=== PATIENT | male | born 1950 | race Two or more races ===

== ENCOUNTER 2017-02-26 10:45 | Day surgery (SDC) | payer MEDICARE ==
[2017-02-21 13:12] VITALS: BMI 25.7
[~2017-02-26 10:45] MED LIST: LACTATED RINGERS 1,000 ML IV SCH
[2017-02-26 11:19] VITALS: RESP 16; TEMP 98.8
[2017-02-26] MEDS ORDERED: LIDOCAINE 1% 20 ML VIAL (10MG/ML) FOR IV START INTRADERMA ONE (11:27)
[2017-02-26] MEDS ORDERED: PROPOFOL 10 MG/ML 20 ML VIAL IV ONE (11:51)
--- NOTE | 2017-02-26 11:56 | P.GSHP ---
History of Present Illness H&P Date: 02/26/17 Chief Complaint: Screening Patient here today for screening colonoscopy. Last colonoscopy 12 years ago. No bowel related complaints. No family history of colon cancer. Past Medical History Past Medical History: GERD/Reflux, Thyroid Disorder History of Any Multi-Drug Resistant Organisms: None Reported Past Surgical History: Orthopedic Surgery Additional Past Surgical History / Comment(s): RT EYE SX. COLONOSCOPY. LT KNEE SX Past Anesthesia/Blood Transfusion Reactions: Previous Problems w/ Anesthesia Additional Past Anesthesia/Blood Transfusion Reaction / Comment(s): SENSITIVE TO ANESTHESIA-HARD TO WAKE UP Smoking Status: Former smoker - Past Family History Father Family Medical History: Deep Vein Thrombosis (DVT) Brother(s) Family Medical History: Cancer Sister(s) Family Medical History: Cancer Medications and Allergies Home Medications Medication Instructions Recorded Confirmed Type Levothyroxine Sodium [Synthroid] 50 mcg PO SUTUWETHSA 02/21/17 02/26/17 History Omeprazole 20 mg PO Q2D 02/21/17 02/26/17 History Allergies Allergy/AdvReac Type Severity Reaction Status Date / Time No Known Allergies Allergy Verified 02/21/17 13:05 Surgical - Exam Vital Signs Temp Pulse Resp BP Pulse Ox 98.8 F 62 16 143/86 98 02/26/17 11:17 02/26/17 11:17 02/26/17 11:17 02/26/17 11:17 02/26/17 11:17 Physical exam: General: Well-developed, well-nourished HEENT: Normocephalic, sclerae nonicteric Abdomen: Nontender, nondistended Extremities: No edema Neuro: Alert and oriented Assessment and Plan (1) Colon cancer screening Narrative/Plan: Will proceed with colonoscopy. Status: Acute
--- NOTE | 2017-02-26 12:05 | P.PCN ---
Date of Procedure: 02/26/17 Procedure(s) Performed: PREOPERATIVE DIAGNOSIS: Screening POSTOPERATIVE DIAGNOSIS: Normal exam PROCEDURE: Colonoscopy ANESTHESIA: MAC SURGEON: Juan Manuel Delgado M.D. SPECIMENS: None ENDOSCOPIC PROCEDURE: The patient was placed on the endoscopy table in the left decubitus position. The Olympus colonoscope was inserted into the anus and passed under direct visualization to the base of the cecum. The appendiceal orifice was visualized. From that point the scope was slowly withdrawn inspecting all surfaces carefully. There were no neoplastic inflammatory or polypoid lesions throughout the cecum, ascending, transverse, descending, sigmoid and rectum. There was no diverticulosis noted. Digital rectal examination was normal. The patient was taken to the recovery room in stable condition per anesthesia guidelines. RECOMMENDATIONS: Increase fiber. Follow-up colonoscopy 10 years
[2017-02-26 12:30] VITALS: BP 131/89; PULSE 60
== END 2017-02-26 13:00 | disposition home or self-care (01) ==
LOC: ORWHC2ENDO 10:45
PROVIDERS: ATTEND Surgery
DX: Z12.11 Encounter for screening for malignant neoplasm of colon (principal); K21.9 Gastro-esophageal reflux disease without esophagitis; E07.9 Disorder of thyroid, unspecified; Z87.891 Personal history of nicotine dependence; Z79.899 Other long term (current) drug therapy
CPT/HCPCS: J2704; G0121; 45378

== ENCOUNTER 2018-10-24 12:20 | Inpatient (IN) | payer MEDICARE ==
[2018-10-24] MEDS ORDERED: NITROGLYCERIN OINT 1 INCH/GM PACKET TOPICAL STA (12:37)
[2018-10-24] MEDS ORDERED: SODIUM CHLORIDE 0.9% 500 ML 500 ML IV STA (12:37)
[2018-10-24] MEDS ORDERED: ASPIRIN 81 MG PO STA (12:37)
--- NOTE | 2018-10-24 12:47 | ED ---
General Adult HPI - General Chief complaint: Chest Pain Stated complaint: chest pain Time Seen by Provider: 10/24/18 12:25 Source: patient, RN notes reviewed - History of Present Illness Initial comments: This is a 68-year-old male who presents emergency Department complaining of feeling very weak fatigued short of breath and having some chest discomfort since yesterday. Patient states is definitely worse with exertion. Patient states there is no radiation of the pain. Patient states when he rests it seems to resolve the symptoms. Patient denied any diaphoretic episodes. Patient denied any nausea. Patient states she was lightheaded when it occurred. Patient states happened intermittently since yesterday. Patient states he did have some palpitations at one point but they seem to have resolved. Patient denies any leg swelling or calf tenderness. Patient denies abdominal pain. Patient states lying here he feels much better and currently does not feel any palpitations. - Related Data Home Medications Medication Instructions Recorded Confirmed Levothyroxine Sodium [Synthroid] 50 mcg PO MOTUWETHFR 02/21/17 10/24/18 Omeprazole 20 mg PO Q48H 02/21/17 10/24/18 Allergies Allergy/AdvReac Type Severity Reaction Status Date / Time No Known Allergies Allergy Verified 10/24/18 13:15 Review of Systems ROS Statement: Those systems with pertinent positive or pertinent negative responses have been documented in the HPI. ROS Other: All systems not noted in ROS Statement are negative. Past Medical History Past Medical History: GERD/Reflux, Thyroid Disorder History of Any Multi-Drug Resistant Organisms: None Reported Past Surgical History: Orthopedic Surgery Additional Past Surgical History / Comment(s): RT EYE SX. COLONOSCOPY. LT KNEE SX Past Anesthesia/Blood Transfusion Reactions: Previous Problems w/ Anesthesia Additional Past Anesthesia/Blood Transfusion Reaction / Comment(s): SENSITIVE TO ANESTHESIA-HARD TO WAKE UP Past Psychological History: No Psychological Hx Reported Smoking Status: Former smoker Past Alcohol Use History: Occasional Past Drug Use History: None Reported - Past Family History Father Family Medical History: Deep Vein Thrombosis (DVT) Brother(s) Family Medical History: Cancer Sister(s) Family Medical History: Cancer General Exam - General Exam Comments Initial Comments: GENERAL: Patient is well-developed and well-nourished. Patient is nontoxic and well-h ydrated and is in mild distress. ENT: Neck is soft and supple. No significant lymphadenopathy is noted. Oropharynx is clear. Moist mucous membranes. Neck has full range of motion without eliciting any pain. EYES: The sclera were anicteric and conjunctiva were pink and moist. Extraocular move ments were intact and pupils were equal round and reactive to light. Eyelids were unremarkable. PULMONARY: Unlabored respirations. Good breath sounds bilaterally. No audible rales rhonchi or wheezing was noted. CARDIOVASCULAR: There is a regular rate and rhythm without any murmurs gallops or rubs. ABDOMEN: Soft and nontender with normal bowel sounds. No palpable organomegaly was noted. There is no palpable pulsatile mass. SKIN: Skin is clear with no lesions or rashes and otherwise unremarkable. NEUROLOGIC: Patient is alert and oriented x3. Cranial nerves II through XII are grossly i ntact. Motor and sensory are also intact. Normal speech, volume and content. Symmetrical smile. MUSCULOSKELETAL: Normal extremities with adequate strength and full range of motion. LYMPHATICS: No significant lymphadenopathy is noted PSYCHIATRIC: Normal psychiatric evaluation. Course Vital Signs 10/24/18 10/24/18 12:23 13:15 Temperature 98.2 F Pulse Rate 60 56 L Respiratory 18 16 Rate Blood Pressure 169/94 157/94 O2 Sat by Pulse 98 98 Oximetry Medical Decision Making - Medical Decision Making EKG shows a normal sinus rhythm at 61 bpm WA interval 262 QRS is 84 QT interval 406 QTC is 408 per patient's EKG shows no ST segment elevation or depression no T-wave abnormalities are noted. Patient's d-dimer is mildly elevated sided a CAT scan of the chest to rule out PE they CAT scan showed no PE. Patient's troponin was elevated 1.2 so started the patient on heparin. I consulted cardiology. I spoke with Dr. Gore he agreed to admit the patient admitted the patient wrote admitting orders I continued heparin and aspirin and Nitropaste on the floor. - Lab Data Result diagrams: 10/24/18 12:48 10/24/18 12:48 Lab Results 10/24/18 10/24/18 10/24/18 Range/Units 12:48 12:48 12:48 WBC 5.0 (3.8-10.6) k/uL RBC 5.72 (4.30-5.90) m/uL Hgb 16.9 (13.0-17.5) gm/dL Hct 51.3 (39.0-53.0) % MCV 89.7 (80.0-100.0) fL MCH 29.6 (25.0-35.0) pg MCHC 33.0 (31.0-37.0) g/dL RDW 13.0 (11.5-15.5) % Plt Count 169 (150-450) k/uL Neutrophils % 62 % Lymphocytes % 23 % Monocytes % 8 % Eosinophils % 4 % Basophils % 0 % Neutrophils # 3.1 (1.3-7.7) k/uL Lymphocytes # 1.2 (1.0-4.8) k/uL Monocytes # 0.4 (0-1.0) k/uL Eosinophils # 0.2 (0-0.7) k/uL Basophils # 0.0 (0-0.2) k/uL PT 9.9 (9.0-12.0) sec INR 0.9 (<1.2) APTT 23.2 (22.0-30.0) sec D-Dimer 0.65 H (<0.60) mg/L FEU Sodium 140 (137-145) mmol/L Potassium 4.3 (3.5-5.1) mmol/L Chloride 104 (98-107) mmol/L Carbon Dioxide 29 (22-30) mmol/L Anion Gap 7 mmol/L BUN 17 (9-20) mg/dL Creatinine 0.96 (0.66-1.25) mg/dL Est GFR (CKD-EPI)AfAm >90 (>60 ml/min/1.73 sqM) Est GFR (CKD-EPI)NonAf 80 (>60 ml/min/1.73 sqM) Glucose 70 L (74-99) mg/dL Calcium 9.7 (8.4-10.2) mg/dL Magnesium 2.1 (1.6-2.3) mg/dL Total Bilirubin 0.6 (0.2-1.3) mg/dL AST 35 (17-59) U/L ALT 34 (21-72) U/L Alkaline Phosphatase 53 (38-126) U/L Troponin I (0.000-0.034) ng/mL Total Protein 7.6 (6.3-8.2) g/dL Albumin 4.5 (3.5-5.0) g/dL 05/11/19 Range/Units 12:48 WBC (3.8-10.6) k/uL RBC (4.30-5.90) m/uL Hgb (13.0-17.5) gm/dL Hct (39.0-53.0) % MCV (80.0-100.0) fL MCH (25.0-35.0) pg MCHC (31.0-37.0) g/dL RDW (11.5-15.5) % Plt Count (150-450) k/uL Neutrophils % % Lymphocytes % % Monocytes % % Eosinophils % % Basophils % % Neutrophils # (1.3-7.7) k/uL Lymphocytes # (1.0-4.8) k/uL Monocytes # (0-1.0) k/uL Eosinophils # (0-0.7) k/uL Basophils # (0-0.2) k/uL PT (9.0-12.0) sec INR (<1.2) APTT (22.0-30.0) sec D-Dimer (<0.60) mg/L FEU Sodium (137-145) mmol/L Potassium (3.5-5.1) mmol/L Chloride (98-107) mmol/L Carbon Dioxide (22-30) mmol/L Anion Gap mmol/L BUN (9-20) mg/dL Creatinine (0.66-1.25) mg/dL Est GFR (CKD-EPI)AfAm (>60 ml/min/1.73 sqM) Est GFR (CKD-EPI)NonAf (>60 ml/min/1.73 sqM) Glucose (74-99) mg/dL Calcium (8.4-10.2) mg/dL Magnesium (1.6-2.3) mg/dL Total Bilirubin (0.2-1.3) mg/dL AST (17-59) U/L ALT (21-72) U/L Alkaline Phosphatase (38-126) U/L Troponin I 1.290 H* (0.000-0.034) ng/mL Total Protein (6.3-8.2) g/dL Albumin (3.5-5.0) g/dL Critical Care Time Critical Care Time: Yes Total Critical Care Time: 35 Disposition Clinical Impression: Non-STEMI (non-ST elevated myocardial infarction) Disposition: ADMITTED IP TO THIS HOSP Referrals: Adiel Day III, MD [Primary Care Provider] - 1-2 days Time of Disposition: 14:11
[2018-10-24 13:03] LABS: Basophils % (A) 0 %; Eosinophils # (A) 0.2 k/uL (0-0.7); Eosinophils % (A) 4 %; HCT 51.3 % (39.0-53.0); HGB 16.9 gm/dL (13.0-17.5); Lymphocytes # (A) 1.2 k/uL (1.0-4.8); Lymphocytes % (A) 23 %; MCH 29.6 pg (25.0-35.0); MCV 89.7 fL (80.0-100.0); Mean Platelet Volume 6.5; Monocytes # (A) 0.4 k/uL (0-1.0); Monocytes % (A) 8 %; Neutrophils # (A) 3.1 k/uL (1.3-7.7); Neutrophils % (A) 62 %; Platelet Count 169 k/uL (150-450); RBC 5.72 m/uL (4.30-5.90)
[2018-10-24 13:12] LABS: ALT 34 U/L (21-72); AST 35 U/L (17-59); Albumin 4.5 g/dL (3.5-5.0); Alkaline Phosphatase 53 U/L (38-126); Anion Gap 7 mmol/L; Blood Urea Nitrogen 17 mg/dL (9-20); Calcium 9.7 mg/dL (8.4-10.2); Carbon Dioxide 29 mmol/L (22-30); Chloride 104 mmol/L (98-107); Glucose 70 mg/dL (74-99); Magnesium 2.1 mg/dL (1.6-2.3); Potassium 4.3 mmol/L (3.5-5.1); Sodium 140 mmol/L (137-145); Total Bilirubin 0.6 mg/dL (0.2-1.3); Total Protein 7.6 g/dL (6.3-8.2)
--- NOTE | 2018-10-24 13:13 | XR ---
EXAMINATION TYPE: XR chest 2V DATE OF EXAM: 10/24/2018 HISTORY: Chest Pain. REFERENCE: NONE. FINDINGS: The lungs are clear. Pleural space are clear. Heart size is upper limits of normal. There i s mild unfolding of the thoracic aorta. IMPRESSION: NO ACUTE INTRATHORACIC ABNORMALITY.
[2018-10-24 13:16] LABS: INR 0.9 (<1.2); Partial Thromboplastin Time 23.2 sec (22.0-30.0); Prothrombin Time 9.9 sec (9.0-12.0)
[2018-10-24 13:19] LABS: D-Dimer 0.65 mg/L FEU (<0.60)
--- NOTE | 2018-10-24 14:03 | CT ---
EXAMINATION TYPE: CT chest angio for PE DATE OF EXAM: 10/24/2018 COMPARISON: None. HISTORY: SOB, Chest tightness CT DLP: 393.3 mGycm Automated exposure control for dose reduction was used. CONTRAST: CT Chest for pulmonary embolism performed with with IV Contrast, patient injected with 85 mL of Isovu e 370. FINDINGS: There is mild dependent atelectasis within the dependent portions of the lungs. Lungs are o therwise clear. There is no significant axillary, mediastinal or hilar adenopathy. There is no evidence of pulmonary embolus. The heart is mildly enlarged. There is dilatation of the root of the aorta which measures 3.8 cm. The proximal arch measures 3.1 cm. The distal arch measures 3.3 cm. At the level of the aortic hiatus, t he aorta measures 3 cm. There is mild hypertrophic spondylosis within the dorsal spine. Visualized portions of the upper abdomen are normal. IMPRESSION: 1. THIS EXAMINATION IS NEGATIVE FOR PULMONARY EMBOLUS. 2. CARDIOMEGALY. 3. THORACIC AORTIC ANEURYSM WITH MAXIMAL TRANSVERSE DIAMETER 3.8 CM. 4. DEGENERATIVE CHANGES WITHIN THE SPINE.
[2018-10-24] MEDS ORDERED: HEPARIN SODIUM,PORCINE 5,000 UNIT/ML 1 ML VIAL IV ONE (14:07)
[2018-10-24] MEDS ORDERED: NITROGLYCERIN SL TABS 0.4 MG TAB SUBLINGUAL PRN (14:11)
[2018-10-24] MEDS ORDERED: HEPARIN SOD,PORK IN 0.45% NACL 25,000 UNIT in 0.45% NACL 1 250ML.BAG IV SCH (14:15)
[2018-10-24] MEDS ORDERED: SODIUM CHLORIDE 0.9% 1,000 ML IV SCH (14:30)
--- NOTE | 2018-10-24 14:36 | P.CRDCN ---
History of Present Illness Consult date: 10/24/18 Chief complaint: Chest pain History of present illness: This is a pleasant 68-year-old gentleman with no significant past medical history of diabetes or hypertension or dyslipidemia nor history of smoking but history of coronary artery disease run in his family with his father presented to the emergency room complaining of chest discomfort. He was in his usual state of health until yesterday when he was doing some work at his backyard and started experiencing discomfort in the mid of the chest, as a pressure on the chest, with some radiation to his neck as well as to his left arm. No associated symptoms of sweating, shortness of breath, or syncope. No nausea no vomiting. The discomfort lasted until he finished work then after he finished work the discomfort resolved completely. The EKG showed sinus rhythm without any ST or T-wave abnormalities concerning for ischemia. The troponin came in to be slightly elevated. For some reason, the patient independent a CTA of the chest which showed no evidence of PE. The rest of the blood work including CBC and BNP came in to be unremarkable. The patient currently is chest pain-free. He is not on any medications including aspirin, or heparin at this point. I am going to start the patient on aspirin, heparin IV, and start the patient on lisinopril as well as for blood pressure control. He does not need beta zainab in view of the sinus bradycardia already. Also will obtain echocardiogram was Doppler rate I did recommend proceeding with coronary angiogram and I am concerned about severe coronary artery disease. We'll continue following up with him. Past Medical History Past Medical History: GERD/Reflux, Thyroid Disorder History of Any Multi-Drug Resistant Organisms: None Reported Past Surgical History: Orthopedic Surgery Additional Past Surgical History / Comment(s): RT EYE SX. COLONOSCOPY. LT KNEE SX Past Anesthesia/Blood Transfusion Reactions: Previous Problems w/ Anesthesia Additional Past Anesthesia/Blood Transfusion Reaction / Comment(s): SENSITIVE TO ANESTHESIA-HARD TO WAKE UP Past Psychological History: No Psychological Hx Reported Smoking Status: Former smoker Past Alcohol Use History: Occasional Past Drug Use History: None Reported - Past Family History Father Family Medical History: Deep Vein Thrombosis (DVT) Brother(s) Family Medical History: Cancer Sister(s) Family Medical History: Cancer Medications and Allergies Home Medications Medication Instructions Recorded Confirmed Type Levothyroxine Sodium [Synthroid] 50 mcg PO MOTUWETHFR 02/21/17 10/24/18 History Omeprazole 20 mg PO Q48H 02/21/17 10/24/18 History Allergies Allergy/AdvReac Type Severity Reaction Status Date / Time No Known Allergies Allergy Verified 10/24/18 13:15 Physical Exam Vitals: Vital Signs Temp Pulse Resp BP Pulse Ox 10/24/18 14:00 60 16 157/94 99 10/24/18 13:15 56 L 16 157/94 98 10/24/18 12:23 98.2 F 60 18 169/94 98 Intake and Output 10/23/18 10/24/18 10/24/18 22:59 06:59 14:59 Other: Weight 91.308 kg - Constitutional General appearance: no acute distress - Respiratory Respiratory: bilateral: CTA - Cardiovascular Rhythm: regular Heart sounds: normal: S1, S2 Results 10/24/18 12:48 10/24/18 12:48 Cardiac Enzymes 10/24/18 10/24/18 Range/Units 12:48 12:48 AST 35 (17-59) U/L Troponin I 1.290 H* (0.000-0.034) ng/mL Coagulation 10/24/18 Range/Units 12:48 PT 9.9 (9.0-12.0) sec APTT 23.2 (22.0-30.0) sec CBC 10/24/18 Range/Units 12:48 WBC 5.0 (3.8-10.6) k/uL RBC 5.72 (4.30-5.90) m/uL Hgb 16.9 (13.0-17.5) gm/dL Hct 51.3 (39.0-53.0) % Plt Count 169 (150-450) k/uL Comprehensive Metabolic Panel 10/24/18 Range/Units 12:48 Sodium 140 (137-145) mmol/L Potassium 4.3 (3.5-5.1) mmol/L Chloride 104 (98-107) mmol/L Carbon Dioxide 29 (22-30) mmol/L BUN 17 (9-20) mg/dL Creatinine 0.96 (0.66-1.25) mg/dL Glucose 70 L (74-99) mg/dL Calcium 9.7 (8.4-10.2) mg/dL AST 35 (17-59) U/L ALT 34 (21-72) U/L Alkaline Phosphatase 53 (38-126) U/L Total Protein 7.6 (6.3-8.2) g/dL Albumin 4.5 (3.5-5.0) g/dL Current Medications Generic Name Dose Route Start Last Admin Trade Name Freq PRN Reason Stop Dose Admin Aspirin 325 mg 10/25/18 09:00 Aspirin PO DAILY [facility] Heparin Sodium/Sodium Chloride 250 mls @ 9.998 mls/hr 10/24/18 14:15 25,000 unit/ Sodium Chloride IV .Q24H [facility] Protocol 10.95 UNITS/KG/HR Sodium Chloride 1,000 mls @ 20 mls/hr 10/24/18 14:30 Saline 0.9% IV .Q24H [facility] Nitroglycerin 1 inch 10/24/18 18:00 Nitro-Bid Oint TOPICAL Q6HR [facility] Nitroglycerin 0.4 mg 10/24/18 14:11 Nitrostat SUBLINGUAL Q5M PRN Chest Pain Intake and Output 10/23/18 10/24/18 10/24/18 22:59 06:59 14:59 Other: Weight 91.308 kg Patient Weight 10/25/18 06:59 Weight 91.308 kg 10/24/18 12:48 10/24/18 12:48 Assessment and Plan Assessment: Assessment #1 acute non-ST elevation myocardial infarction Plan #1 I did recommend proceeding with coronary angiogram #2 obtain an echocardiogram was Doppler #3 start the patient on antiplatelet and anticoagulation #4 start DOMINIC inhibitor with lisinopril #5 follow-up with the patient Thank you for allowing us participate in his care
[2018-10-24] MEDS ORDERED: HYDROmorphone 0.5 MG/0.5 ML SYRINGE IVP PRN (16:51)
[2018-10-24] MEDS ORDERED: TEMAZEPAM 15 MG CAP PO PRN (16:51)
[2018-10-24] MEDS ORDERED: ALPRAZolam 0.25 MG TAB PO PRN (16:51)
[2018-10-24] MEDS ORDERED: NON-FORMULARY DRUG (Omeprazole [Omeprazole] 20 MG) PO SCH (17:00)
[2018-10-24] MEDS: NITROGLYCERIN OINT 1 INCH/GM PACKET TOPICAL SCH ×2 (17:31→23:11)
[2018-10-24] MEDS: ACETAMINOPHEN TAB 500 MG TAB PO PRN (22:19)
[2018-10-25 04:47] LABS: Anion Gap 5 mmol/L; Blood Urea Nitrogen 16 mg/dL (9-20); Calcium 8.9 mg/dL (8.4-10.2); Carbon Dioxide 26 mmol/L (22-30); Chloride 105 mmol/L (98-107); Cholesterol 125 mg/dL (<200); Glucose 86 mg/dL (74-99); HDL Cholesterol 36 mg/dL (40-60); LDL Cholesterol,Calculated 74 mg/dL (0-99); Potassium 4.1 mmol/L (3.5-5.1); Sodium 136 mmol/L (137-145); Triglycerides 73 mg/dL (<150)
[2018-10-25 05:12] LABS: Basophils % (A) 0 %; Eosinophils # (A) 0.2 k/uL (0-0.7); Eosinophils % (A) 3 %; HCT 43.9 % (39.0-53.0); HGB 14.6 gm/dL (13.0-17.5); Lymphocytes # (A) 1.1 k/uL (1.0-4.8); Lymphocytes % (A) 20 %; MCH 29.8 pg (25.0-35.0); MCHC 33.2 g/dL (31.0-37.0); MCV 89.8 fL (80.0-100.0); Monocytes # (A) 0.5 k/uL (0-1.0); Monocytes % (A) 9 %; Neutrophils # (A) 3.7 k/uL (1.3-7.7); Neutrophils % (A) 67 %; Platelet Count 135 k/uL (150-450); RBC 4.89 m/uL (4.30-5.90); RDW 13.2 % (11.5-15.5); WBC 5.6 k/uL (3.8-10.6)
[2018-10-25] MEDS: PANTOPRAZOLE 40 MG TABLET PO SCH (05:50)
[2018-10-25] MEDS ORDERED: ATORVASTATIN 80 MG TAB PO STA (05:50)
[2018-10-25] MEDS: ASPIRIN 325 MG TAB PO SCH (06:09)
[2018-10-25] MEDS: LISINOPRIL 2.5 MG TAB PO SCH (06:09)
[2018-10-25] MEDS: NITROGLYCERIN OINT 1 INCH/GM PACKET TOPICAL SCH ×4 (06:15→23:18)
[2018-10-25] MEDS: ACETAMINOPHEN TAB 500 MG TAB PO PRN (07:45)
--- NOTE | 2018-10-25 07:50 | HP ---
HISTORY AND PHYSICAL DATE OF SERVICE: 10/24/2018 CHIEF COMPLAINT: Chest pain. HISTORY OF PRESENT ILLNESS: This 68-year-old gentleman with a past medical history of multiple medical problems including history of GERD, hypothyroidism, history of DJD being followed by Dr. Day in the outpatient setting was having chest discomfort. The patient feeling fatigued, short of breath and chest pain was discovered mostly on the right side. It was mild to moderate intensity and worse with exertion and the patient came to [facility] and was admitted for further evaluation and treatment. The troponins were found to be 1.290 and 1.880. The EKG showed no acute abnormality. Cardiology evaluation in progress at this time and the patient is recommended cardiac catheterization by Cardiology. A chest CT was also done, which showed no evidence of any pulmonary embolism at this time. Thoracic aneurysm with maximal transverse diameter of 3.8 cm is also noted. There is no history of fever, rigors. No headache, loss of consciousness, seizures at this time. PAST MEDICAL HISTORY: History of GERD, hypothyroidism, history of DJD. MEDICATIONS: Prior to admission include home medications are: Omeprazole 20 mg q.48h hours, Synthroid 50 mcg p.o. Friday, Friday, Friday, , Friday. ALLERGIES: None. FAMILY HISTORY: History of DVT in the family. SOCIAL HISTORY: Previous history of smoking. Occasional alcohol intake. REVIEW OF SYSTEMS: ENT: No diminished vision. No diminished hearing. CARDIOVASCULAR SYSTEM: As mentioned earlier. GI: No nausea. : No dysuria. NERVOUS SYSTEM: No numbness or weakness. ALLERGY/IMMUNOLOGY: No asthma, hayfever. MUSCULOSKELETAL: As mentioned earlier. HEMATOLOGY: No history of anemia. ENDOCRINE: Mentioned earlier, hypothyroid. CONSTITUTIONAL: As mentioned earlier. DERMATOLOGY: Negative. RHEUMATOLOGY: Negative. PSYCHIATRY: As mentioned earlier. PHYSICAL EXAMINATION: Alert and oriented x3. Pulse is 55, blood pressure 106/62, respirations 16, temperature 99.1, pulse ox 98% on room air. HEENT: Conjunctivae normal. Oral mucosa moist. Neck is no jugular venous distention. No carotid bruit. No lymph node enlargement. CARDIOVASCULAR: S1, S2 muffled. No S3, no S4. RESPIRATORY: Breath sounds diminished in the bases. No rhonchi. No crackles. ABDOMEN: Soft, nontender. No mass palpable. LEGS: No edema. No swelling. NERVOUS SYSTEM: Higher function as mentioned earlier. Moves all four limbs. No focal motor or sensory deficits. LYMPHATICS: No lymphadenopathy in the neck, axillae, groin. SKIN: No ulcer, rash or bleeding. JOINTS: No active deforming arthropathy. LABS: At this time show CBC within normal limits. D-dimer is 0.605 and glucose is 70. Troponin noted. ASSESSMENT: 1. Chest pain possible acute non ST elevation myocardial infarction. 2. Troponin 1.880. 3. Thoracic aortic aneurysm with maximal transverse diameter 3.[address] scan. 4. History of gastroesophageal reflux disease. 5. Hypothyroidism. 6. History of degenerative joint disease. 7. Remote history of nicotine dependence. RECOMMENDATIONS AND DISCUSSION: In this 68-year-old gentleman who presented with multiple complex medical issues, we will monitor the patient closely. Continue the current management and symptomatic treatment. Will initiate IV heparin drip. Closely follow with Cardiology, possible cardiac catheterization. Antiplatelet agents. Guarded prognosis because of multiple complex medical issues. Further recommendations to follow. Resume home medications. Prognosis guarded. Copy of dictation forwarded to Dr. Day who is the primary physician. See orders for further details. A 2D echo has been ordered. MMODL / IJN: [id number] /
[2018-10-25] MEDS ORDERED: IV FLUID CONTINUATION 200 ML IV ONE (07:51)
[2018-10-25] MEDS ORDERED: MIDAZOLAM (PF) 2 MG/2 ML VIAL IV ONE (08:20)
[2018-10-25] MEDS ORDERED: LIDOCAINE 1% INJ 10MG/ML (20 ML MDV) SQ ONE (08:20)
[2018-10-25] MEDS: VERAPAMIL SYRINGE (5 MG/10 ML) INTRAARTER ONE ×2 (08:22→09:03)
[2018-10-25] MEDS ORDERED: BIVALIRUDIN BOLUS 250 MG/50 ML IV ONE (08:35)
[2018-10-25] MEDS ORDERED: BIVALIRUDIN 250 MG in SODIUM CHLORIDE 0.9% 50 ML IV ONE (08:36)
[2018-10-25] MEDS ORDERED: PRASUGREL 10 MG TAB ONE (08:36)
[2018-10-25] MEDS ORDERED: PRASUGREL 10 MG TAB PO ONE (08:40)
[2018-10-25] MEDS ORDERED: NITROGLYCERIN 1000MCG/10ML SYRINGE INTRACORON ONE (08:42)
[2018-10-25] MEDS ORDERED: IOPAMIDOL-370 125ML BTL INJ ONE (09:02)
[2018-10-25] MEDS ORDERED: ATROPINE SULFATE 0.1 MG/ML 10ML SYRINGE IV PRN (09:10)
[2018-10-25] MEDS ORDERED: NITROGLYCERIN SL TABS 0.4 MG TAB SUBLINGUAL PRN (09:10)
[2018-10-25] MEDS ORDERED: RX INFO: IV CONTRAST WAS GIVEN 1 EACH MISC MISCELLANE PRN (09:10)
[2018-10-25] MEDS ORDERED: MAG HYDROX/AL HYDROX/SIMETH 30 ML CUP PO PRN (09:10)
[2018-10-25] MEDS ORDERED: ZOLPIDEM 5 MG TAB PO PRN (09:10)
[2018-10-25] MEDS ORDERED: SODIUM CHLORIDE 0.9% 1,000 ML IV SCH (09:15)
--- NOTE | 2018-10-25 10:06 | CC ---
CARDIAC CATHETERIZATION REPORT DATE OF SERVICE: October 25, 2018 PERFORMING PHYSICIAN: Josias Carpio MD, rubber stamp die inspector. PROCEDURE PERFORMED: 1. Selective right and left coronary angiogram. 2. Left heart catheterization. 3. Successful stenting of the proximal left circumflex coronary artery using 3.25 x 15 mm Xience drug-eluting stent with reduction of stenosis from 99% to 0%. 4. Successful stenting of the mid right coronary artery using 3.0 x 15 mm Xience drug- eluting stent with reduction of stenosis from 80% to 0%. INDICATIONS: This is a pleasant 68-year-old gentleman with no significant past medical history who presented to the emergency room at [facility] with chest discomfort and ruled in for acute non ST elevation myocardial infarction. The patient does not have any risk factors for CAD nor family history nor history of smoking. APPROACH: Right radial artery. COMPLICATION: None. LEVEL OF SEDATION: Moderate with sedation length of 46 minutes. PROCEDURE DESCRIPTION: After obtaining an informed consent, the patient was brought to the cardiac laboratory chemist. The right radial artery was cannulated using micropuncture technique, the micropuncture wire passed easily, then I placed a 6-Omani sheath in the right radial artery. After that I gave the patient 2 mg of verapamil IA without heparin at that point. Subsequently I did selective right and left coronary angiogram using JR4 and JL3.5 catheters with the left heart catheterization was performed using the JR4 catheter which crossed the aortic valve. Then I did pullback across aortic valve. The diagnostic procedure was completed. Then I intervened on the left circumflex and RCA. Please see a separate paragraph for that. SELECTIVE CORONARY ANGIOGRAM: RIGHT CORONARY ARTERY: The right coronary artery is a large caliber vessel and it is a dominant vessel. The proximal right appeared to be normal. The mid right has a lesion appeared to be in the range of 80%. The right distally has mild disease only and bifurcates into PDA and PLV branches. The PDA branch appeared to be angiographically normal. The PLV branch has a lesion appeared to be in the range of 60% to 70%. LEFT MAIN: The left main is angiographically normal. It bifurcates into left circumflex and left anterior descending artery. CIRCUMFLEX CORONARY ARTERY: The left circumflex is a large caliber vessel and is a nondominant vessel. The proximal circumflex has a lesion appeared to be hazy in the range of 99%. The circumflex after that gives rise into the first and second obtuse marginal branches and both appeared to be angiographically normal before it continues as a small-caliber vessel in the AV groove. LEFT ANTERIOR DESCENDING CORONARY ARTERY: The proximal LAD appeared to be angiographically normal. It gives rise into the first diagonal branch which is a moderate caliber vessel with disease in the midportion appeared to be in the range of 60% to 70%. The mid LAD after that has a lesion appeared to be in the range of 60% to 70%. The LAD after that lesion is diffusely diseased up to about 60%. HEMODYNAMIC: The left ventricular end-diastolic pressure was about 8 mmHg without significant gradient across the aortic valve. PCI OF THE LEFT CIRCUMFLEX AND LAD: Anticoagulation was initiated using Angiomax. Subsequently I took 3.5 guide and the left main was engaged. I did wire the left circumflex and cross the lesion using whisper wire. After that, I did PTCA ballooning using 3.0 x 12 mm balloon before I deployed 3.25 x 15 mm Xience LY where the stent was positioned under fluoroscopy guidance and deployed under its nominal pressure with the following angiogram showing good angiographic results. There was reduction in the stenosis from 99% to 0%. After that, I did engage the RCA using a JR4 guide. I did wire the RCA using a whisper wire. After that, I did direct stenting on the lesion using 3.0 x 12 mm stent, which was positioned under fluoroscopy guidance and deployed under 12 atmospheres. I did post dilate the stent using 3.0 x 8 mm NC balloon. The following angiogram showed excellent angiographic results and the procedure was completed without any complication. CONCLUSION: 1. Acute non-ST elevation myocardial infarction in this 68-year-old gentleman. 2. Critical disease involving the left circumflex coronary artery in its proximal portion. 3. Severe disease involving the mid right coronary artery in its midportion. 4. Intermediate disease to severe disease involving the left anterior descending artery. 5. Successful stenting of the LCX and RCA as described above. POSTPROCEDURE MANAGEMENT: 1. Maximize medical treatment. 2. Dual anti-platelet therapy. 3. Aggressive cholesterol control. 4. Assess for ischemia in the LAD territory probably by doing a stress test as an outpatient. 5. Follow up with the patient. MMODL / IJN: [id number] /
--- NOTE | 2018-10-25 10:09 | LTR ---
DATE OF SERVICE: October 25, [address] Day: Efrain Blankenship presented to [facility] with chest discomfort and ruled in for acute non ST elevation myocardial infarction. He underwent a heart catheterization which revealed critical disease involving the left circumflex and severe disease involving the RCA. He underwent successful stenting of both arteries with good angiographic results and without any complication. Thank you for allowing us to participate in his care and please do not hesitate to call if you have any questions or concerns. Sincerely, MMVALENTINE / IJN: [id number] /
[2018-10-25 11:10] LABS: Appearance,Urine Clear (Clear); Bilirubin,Urine Negative (Negative); Blood,Urine Negative (Negative); Color,Urine Light Yellow; Glucose,Urine (UA) Negative (Negative); Ketones,Urine Negative (Negative); Leukocyte Esterase,Urine Negative (Negative); Nitrite,Urine Negative (Negative); PH, Urine 7.5 (5.0-8.0); Protein,Urine Negative (Negative); Urobilinogen,Urine <2.0 mg/dL (<2.0)
[2018-10-25 11:58] LABS: Specific Gravity,Urine >1.050 (1.001-1.035)
[2018-10-25 15:31] VITALS: BMI 26.8
--- NOTE | 2018-10-25 21:39 | PN ---
PROGRESS NOTE DATE OF SERVICE: 10/25/2018 This 68-year-old gentleman who was admitted with chest pain, possible acute non ST elevation myocardial infarction, underwent cardiac catheterization and stenting of the left circumflex and RCA by Dr. Carpio. Patient tolerated the procedure well. Patient continues to be monitored closely. No chest pain. No palpitations. No fever. EXAM: Alert and oriented x3. Pulse 62, blood pressure 131/72, respiration 18, temperature 98.2, pulse ox 98% on room. HEENT: Conjunctivae normal. Oral mucosa moist. NECK: No jugular venous distention. No lymph node enlargement. CARDIOVASCULAR: S1, S2 muffled. RESPIRATORY: Diminished breath sounds at the bases. A few scattered rhonchi, no crackles. ABDOMEN: Soft, nontender. LEGS: No swelling. NERVOUS SYSTEM: No focal deficits. LABS: WBC 5.6, hemoglobin 14.6, platelets 135. ASSESSMENT: 1. Chest pain, possible acute non-ST elevation myocardial infarction status post cardiac catheterization and stenting of the left circumflex and right coronary artery. 2. Troponin 2.750. 3. Thoracic aortic aneurysm with maximal transverse diameter of 3.[address] scan. 4. History of gastroesophageal reflux disease. 5. Hypothyroidism. 6. History of degenerative joint disease. 7. Remote history of nicotine dependence. RECOMMENDATIONS AND DISCUSSION: I recommend to continue current medications, continue to monitor, continue symptomatic treatment, continue with dual antiplatelet treatment. Closely monitor with Cardiology. Guarded prognosis because of multiple complex medical issues. Increase ambulation. Further recommendations to follow. MMODL / IJN: [id number] /
[2018-10-26] MEDS: ACETAMINOPHEN TAB 500 MG TAB PO PRN (05:17)
[2018-10-26] MEDS: NITROGLYCERIN OINT 1 INCH/GM PACKET TOPICAL SCH (05:25)
[2018-10-26] MEDS: PANTOPRAZOLE 40 MG TABLET PO SCH (06:01)
[2018-10-26] MEDS ORDERED: LEVOTHYROXINE 50 MCG TAB PO SCH (06:30)
[2018-10-26 06:55] LABS: Basophils % (A) 0 %; Eosinophils # (A) 0.3 k/uL (0-0.7); Eosinophils % (A) 4 %; HCT 46.5 % (39.0-53.0); Lymphocytes # (A) 1.3 k/uL (1.0-4.8); Lymphocytes % (A) 21 %; MCH 30.8 pg (25.0-35.0); MCHC 34.5 g/dL (31.0-37.0); MCV 89.3 fL (80.0-100.0); Monocytes # (A) 0.5 k/uL (0-1.0); Monocytes % (A) 8 %; Neutrophils % (A) 64 %; Platelet Count 152 k/uL (150-450); RBC 5.21 m/uL (4.30-5.90); WBC 6.2 k/uL (3.8-10.6)
[2018-10-26 07:05] LABS: Anion Gap 7 mmol/L; Blood Urea Nitrogen 14 mg/dL (9-20); Carbon Dioxide 25 mmol/L (22-30); Chloride 106 mmol/L (98-107); Glucose 90 mg/dL (74-99); Potassium 4.2 mmol/L (3.5-5.1); Sodium 138 mmol/L (137-145)
[2018-10-26 08:47] VITALS: RESP 16; TEMP 98.5
[2018-10-26] MEDS: ASPIRIN 325 MG TAB PO SCH (08:48)
[2018-10-26] MEDS: LISINOPRIL 2.5 MG TAB PO SCH (08:49)
[2018-10-26] MEDS ORDERED: ASPIRIN 81 MG PO SCH (09:00)
[2018-10-26] MEDS ORDERED: PRASUGREL 10 MG TAB PO SCH (09:00)
[2018-10-26 11:13] VITALS: BP 124/84; PULSE 61
--- NOTE | 2018-10-26 11:57 | P.PN ---
Subjective Progress Note Date: 10/26/18 This is a pleasant 68-year-old gentleman with no significant past medical history of diabetes or hypertension or dyslipidemia nor history of smoking but history of coronary artery disease run in his family with his father presented to the emergency room complaining of chest discomfort. He was in his usual state of health until yesterday when he was doing some work at his backyard and started experiencing discomfort in the mid of the chest, as a pressure on the chest, with some radiation to his neck as well as to his left arm. No associated symptoms of sweating, shortness of breath, or syncope. No nausea no vomiting. The discomfort lasted until he finished work then after he finished work the discomfort resolved completely. The EKG showed sinus rhythm without any ST or T-wave abnormalities concerning for ischemia. The troponin came in to be slightly elevated. For some reason, the patient independent a CTA of the chest which showed no evidence of PE. The rest of the blood work including CBC and BNP came in to be unremarkable. The patient currently is chest pain-free. He is not on any medications including aspirin, or heparin at this point. 10/26/2018 Patient was taken to the cardiac catheterization lab yesterday where he underwent angioplasty and stenting of the RCA and circumflex artery. He was also found to have moderate to severe disease in the left anterior descending artery.patient was seen and examined this morning, denied any chest pain or difficulty in breathing. He's been up ambulating without any difficulty.White blood cell count 6.2, hemoglobin 16, platelet count 152. Sodium 138, potassium 4.2, BUN 14 and creatinine 0.8.echocardiogram with Doppler study remains pending. Objective - Vital Signs Vital signs: Vital Signs Temp 98.5 F 10/26/18 08:00 Pulse 61 10/26/18 11:37 Resp 16 10/26/18 11:12 BP 124/84 10/26/18 11:12 Pulse Ox 95 10/26/18 11:12 Intake & Output 10/25/18 10/26/18 10/26/18 18:59 06:59 18:59 Intake Total 814 240 Balance 814 240 Weight 89.6 kg 88.3 kg Intake: IV 634 Sodium Chloride 0.9% 1, 450 000 ml @ 20 mls/hr IV . Q24H [facility] Rx#:[id number] Oral 180 240 Other: Voiding Method Toilet # Voids 1 - Exam PHYSICAL EXAMINATION: GENERAL:68-year-old gentleman in no acute distress at the time of my examination HEENT: Head is atraumatic, normocephalic. Pupils equal, round. Sclera anicteric. Conjunctiva are clear. Mucous membranes of the mouth are moist. Neck is supple. There is no elevated jugular venous pressure. No carotid bruit is heard. HEART EXAMINATION: [Heart S1, S2 normal. No murmur or gallop heard.] CHEST EXAMINATION:[ Lungs are clear to auscultation and precussion. No chest wall tenderness is noted on palpation or with deep breathing.] ABDOMEN: [ Soft, nontender. Bowel sounds are heard. No organomegaly noted]. EXTREMITIES:[ 2+ peripheral pulses with no evidence of peripheral edema and no calf tenderness noted]. Right radial site clean and dry, good distal pulse. NEUROLOGIC [patient is awake, alert and oriented ?-3.] . - Labs CBC & Chem 7: 10/26/18 06:29 10/26/18 06:29 Labs: Abnormal Lab Results - Last 24 Hours (Table) 10/25/18 Range/Units 10:25 Ur Specific [place] >1.050 H (1.001-1.035) Assessment and Plan Plan: Assessment and plan #1 acute non-ST elevation myocardial infarction, status post angioplasty and stenting of the circumflex artery. Moderate to severe disease in the LAD #2 hyperlipidemia Plan from cardiology's perspective, we'll review the echocardiogram with Doppler study. The patient may be discharged home from our perspective, we will make him a follow-up appointment with Dr. Carpio in the office post discharge. Discharge medications include aspirin 81 mg daily, Lipitor 80 mg daily, lisinopril 2.5 mg daily, metoprolol 25 mg daily, Effient 10 mg daily,sublingual nitroglycerin as needed for chest pain. DNP note has been reviewed, I agree with a documented findings and plan of care. Patient was seen and examined.
[2018-10-26] MEDS ORDERED: METOPROLOL SUCCINATE (ER) 25 MG TAB.ER.24H PO SCH (12:00)
[2018-10-26] MEDS ORDERED: ATORVASTATIN 80 MG TAB PO SCH (21:00)
--- NOTE | 2018-10-27 06:48 | DS ---
DISCHARGE SUMMARY DATE OF SERVICE: 10/26/2018 FINAL DIAGNOSES: 1. Chest pain, possible acute phi-[id number] myocardial infarction, status post cardiac catheterization and stenting of the left circumflex and right coronary artery. 2. Troponin 2.750. 3. Thoracic aortic aneurysm with maximal transverse diameter of 3.[address] scan. 4. History of gastroesophageal reflux disease. 5. Hypothyroidism. 6. History of degenerative joint disease. 7. Remote history of nicotine dependence. DISCHARGE DISPOSITION: The patient will be discharged in stable condition with guarded prognosis. HISTORY OF PRESENT ILLNESS: This 68-year-old gentleman who a past medical history of multiple medical problems admitted with acute [id number] myocardial infarction. Patient underwent cardiac catheterization with stenting of the circumflex and RCA by Dr. Carpio. Patient improved significantly. Patient discharged in stable condition with guarded prognosis. On exam, vitals are stable. CARDIOVASCULAR: S1, S2 muffled. RESPIRATORY: A few scattered rhonchi. ABDOMEN: Soft. NERVOUS SYSTEM: No focal deficits. DISCHARGE ADVICE: 1. Diet is cardiac. 2. Activity limited until followup. 3. Follow up with Dr. Carpio as mentioned. 4. Follow up with Dr. Day in 2 to 3 days. Medications are as follows: 1. Omeprazole 20 mg q.48 hours. 2. Synthroid 50 mcg p.o. Friday, Friday, Friday, , Friday. 3. Aspirin 81 mg p.o. daily. 4. Effient 10 mg p.o. daily. 5. Lipitor 80 mg q.h.s. 6. Nitrostat 0.4 mg sublingual p.r.n. 7. Toprol XL 25 mg p.o. daily. 8. Zestril 2.5 mg daily. Once again, the patient will be discharged in a stable condition with guarded prognosis. MMODL / IJN: [id number] /
== END 2018-10-26 14:34 | disposition home or self-care (01) | DRG 247 ==
LOC: EC 12:20 → 3SCARD 14:11
PROVIDERS: ADMIT Hospitalist; ATTEND Hospitalist
PROC: 027135Z Dilation of Coronary Artery, Two Arteries with Two Drug-eluting Intraluminal Devices, Percutaneous Approach (ICD-10-PCS; principal; 2018-10-25 07:45)
PROC: 4A023N7 Measurement of Cardiac Sampling and Pressure, Left Heart, Percutaneous Approach (ICD-10-PCS; 2018-10-25 07:45)
PROC: B2111ZZ Fluoroscopy of Multiple Coronary Arteries using Low Osmolar Contrast (ICD-10-PCS; 2018-10-25 07:45)
DX: I21.4 Non-ST elevation (NSTEMI) myocardial infarction (principal); I71.2 Thoracic aortic aneurysm, without rupture; E03.9 Hypothyroidism, unspecified; E78.5 Hyperlipidemia, unspecified; K21.9 Gastro-esophageal reflux disease without esophagitis; M19.90 Unspecified osteoarthritis, unspecified site; I25.10 Atherosclerotic heart disease of native coronary artery without angina pectoris; Z79.890 Hormone replacement therapy; Z79.899 Other long term (current) drug therapy; Z87.891 Personal history of nicotine dependence; Z82.49 Family history of ischemic heart disease and other diseases of the circulatory system; Z80.9 Family history of malignant neoplasm, unspecified
CPT/HCPCS: 36415; 71046; 71275; 80048; 80053; 80061; 81003; 83735; 84484; 85025; 85379; 85610; 85730; 93005; 93306; 93458; 96361; 96365; 96366; 96376; 99291; C1874